=== PATIENT | female | born 1990 | race Caucasian/White ===

== ENCOUNTER 2016-10-29 09:30 | Emergency (ER) | payer MEDICAID, OTHER ==
[~2016-10-29] VITALS: Ht 162.6 cm; Wt 70.0 kg
[2016-10-29] MEDS ORDERED: KETOROLAC 60MG/2ML VIAL IM ONE (10:00)
[2016-10-29 10:25] VITALS: BP 109/57
== END 2016-10-29 10:34 | disposition home or self-care (01) ==
LOC: ER 09:58
DX: S16.1XXA Strain of muscle, fascia and tendon at neck level, initial encounter (principal); F12.10 Cannabis abuse, uncomplicated; X58.XXXA Exposure to other specified factors, initial encounter; Y93.89 Activity, other specified; Y99.8 Other external cause status; Y92.89 Other specified places as the place of occurrence of the external cause
CPT/HCPCS: 81025; 96372; 99283; J1885

== ENCOUNTER 2019-08-20 09:01 | Emergency (ER) | payer OTHER ==
[~2019-08-20] VITALS: Ht 165.1 cm; Wt 70.0 kg
[2019-08-20] MEDS ORDERED: KETOROLAC 30MG/ML VIAL IM ONE (10:45)
[2019-08-20 12:33] VITALS: BP 116/58
== END 2019-08-20 12:38 | disposition home or self-care (01) ==
LOC: ER 09:44
DX: M79.641 Pain in right hand (principal); R20.0 Anesthesia of skin; R20.2 Paresthesia of skin; F12.10 Cannabis abuse, uncomplicated; Z98.890 Other specified postprocedural states
CPT/HCPCS: 73130; 81025; 96372; 99283; J1885